=== PATIENT | female | born 1965 | race Two or more races ===

== ENCOUNTER 2021-03-11 08:04 | Inpatient (IN) | payer OTHER ==
[2021-03-10 10:00] LABS: BASOPHILS % (AUTO) 1 % (0-1); EOSINOPHILS % (AUTO) 1 % (1-7); LYMPHOCYTES % (AUTO) 37 % (22-44); MEAN CORPUSCULAR HEMOGLOBIN 30.7 pg (27.0-34.8); MEAN CORPUSCULAR HGB CONC 33.3 g/dL (32.4-35.8); MEAN PLATELET VOLUME 8.3 fL (7.4-10.4); MONOCYTES % (AUTO) 6 % (2-9); NEUTROPHILS % (AUTO) 55 % (42-75); PLATELET COUNT 254 x10^3/uL (130-400); RED CELL DISTRIBUTION WIDTH 13.7 % (9.6-15.2)
[2021-03-10 10:01] LABS: HCT (SEDRATE) 40.6 % (34.6-47.8)
[2021-03-10 10:11] LABS: ANION GAP 5 mmol/L (5-15); CALCIUM 8.9 mg/dL (8.5-10.1); CHLORIDE 109 mmol/L (98-107); CREATININE 0.63 mg/dL (0.55-1.02)
[2021-03-10 10:12] LABS: INTERNATIONAL NORMALIZED RATIO 0.95 (0.93-1.1); PROTHROMBIN TIME 10.2 Seconds (9.6-11.5)
[~2021-03-11] VITALS: Ht 157.5 cm; Wt 82.3 kg
[~2021-03-11 08:04] MED LIST: ALPR0.5T7 PO; COLE500G2 PO; GALC120P INJ; HYDR-3241 PO; MULT-449 PO; PANT40TA3 PO
[2021-03-11] MEDS ORDERED: VANCOMYCIN PMX 1GM/200ML 200 ML IV ONE (11:00)
[2021-03-11 11:25] VITALS: BP 109/75
[2021-03-11] MEDS ORDERED: CHLORHEXIDINE 15 ML UDC PO ONE (11:30)
[2021-03-11] MEDS ORDERED: LACTATED RINGERS 1,000 ML IV SCH (11:30)
[2021-03-11] MEDS ORDERED: MIDAZOLAM 1 MG/ML, 2ML ONE ×2 (11:58→17:13)
[2021-03-11] MEDS ORDERED: FENTANYL PF 250 MCG/5ML ONE (11:58)
[2021-03-11] MEDS ORDERED: PROPOFOL 50 ML ONE ×3 (11:59→15:33)
[2021-03-11] MEDS ORDERED: DIPHENHYDRAMINE 50 MG/ML, 1ML IVPush PRN ×2 (12:00→17:30)
[2021-03-11] MEDS ORDERED: LABETALOL 5MG/ML, 20ML IV PRN ×2 (12:00→17:30)
[2021-03-11] MEDS ORDERED: HALOPERIDOL 5 MG/ML IV PRN (12:00)
[2021-03-11] MEDS ORDERED: ACETAMINOPHEN 325 MG TABLET PO PRN (12:00)
[2021-03-11] MEDS ORDERED: MEPERIDINE/PF 25MG/0.5ML IVPush PRN (12:00)
[2021-03-11] MEDS ORDERED: HYDROmorphone 1 MG/ML, 1ML INJ IVPush PRN (12:00)
[2021-03-11] MEDS ORDERED: MIDAZOLAM 1 MG/ML, 2ML IV PRN (12:00)
[2021-03-11] MEDS ORDERED: OXYcodone 5 MG/5 ML ORAL.SOL UDC PO PRN (12:00)
[2021-03-11] MEDS ORDERED: PROMETHAZINE 25 MG/ML, 1ML IVPush PRN (12:00)
[2021-03-11] MEDS ORDERED: hydrALAzine 20 MG/ML, 1ML IV PRN (12:00)
[2021-03-11] MEDS ORDERED: VANCOMYCIN 1,000 MG in SODIUM CHLORIDE 0.9% 100 ML IV ONE (12:30)
[2021-03-11] MEDS ORDERED: BUPIVACAINE/PF 0.5% ONE (12:40)
[2021-03-11] MEDS ORDERED: THROMBIN 20,000 UNIT VIAL TP ONE (12:41)
[2021-03-11] MEDS ORDERED: TRANEXAMIC ACID 100 MG/ML, 10ML ONE ×2 (12:41→13:17)
[2021-03-11] MEDS ORDERED: VANCOMYCIN 1,000 MG ONE (12:41)
[2021-03-11] MEDS ORDERED: EPINEPHRINE 1 MG/ML, 1ML ONE (12:41)
[2021-03-11] MEDS ORDERED: SCOPOLAMINE 1MG PATCH TD ONE (13:04)
[2021-03-11] MEDS ORDERED: REMIFENTANIL 2 MG ONE (13:06)
[2021-03-11] MEDS ORDERED: HEPARIN 1,000 UNITS/ML, 10ML ONE (14:04)
[2021-03-11] MEDS ORDERED: BUPIVACAINE/PF-EPI 0.5% 1:200K IM ONE (14:20)
[2021-03-11] MEDS ORDERED: HYDROmorphone 1 MG/ML, 1ML INJ ONE (14:38)
[2021-03-11] MEDS ORDERED: NEOSTIGMINE 1 MG/ML, 10ML ONE (17:01)
[2021-03-11] MEDS ORDERED: PROPOFOL 10 MG/ML, 20ML ONE (17:01)
[2021-03-11] MEDS ORDERED: GLYCOPYRROLATE 0.2MG/1ML, 5ML ONE (17:01)
[2021-03-11] MEDS ORDERED: ONDANSETRON 2MG/ML, 2ML ONE (17:01)
[2021-03-11] MEDS ORDERED: SUCCINYLCHOLINE 20 MG/ML, 10ML ONE (17:01)
[2021-03-11] MEDS ORDERED: CEFAZOLIN 1,000 MG ONE (17:01)
[2021-03-11] MEDS ORDERED: DEXAMETHASONE 4 MG/ML, 1ML ONE (17:01)
[2021-03-11] MEDS ORDERED: ROCURONIUM 10MG/ML,5ML ONE (17:01)
[2021-03-11] MEDS ORDERED: FENTANYL PF 100 MCG/2ML ONE ×2 (17:08→18:02)
[2021-03-11] MEDS ORDERED: TRANEXAMIC ACID 1,000 MG in SODIUM CHLORIDE 0.9% 100 ML IVPB ONE (17:30)
[2021-03-11] MEDS ORDERED: KETOROLAC 30 MG/1 ML IVPush ONE (17:30)
[2021-03-11] MEDS ORDERED: DIPHENHYDRAMINE 50 MG CAPSULE PO PRN (17:30)
[2021-03-11] MEDS ORDERED: ACETAMINOPHEN 500 MG TABLET PO PRN (17:30)
[2021-03-11] MEDS ORDERED: SODIUM CHLORIDE 0.9% 1,000 ML IV PRN (17:30)
[2021-03-11] MEDS ORDERED: PROMETHAZINE 25 MG/ML, 1ML IM PRN (17:30)
[2021-03-11] MEDS ORDERED: LABETALOL 5MG/ML, 20ML IVPush PRN (17:30)
[2021-03-11] MEDS ORDERED: LORazepam 1MG TABLET PO PRN (17:30)
[2021-03-11] MEDS ORDERED: HYDROmorphone 2MG TABLET PO PRN (17:30)
[2021-03-11] MEDS ORDERED: OXYcodone IR 5MG TABLET PO PRN (17:30)
[2021-03-11] MEDS ORDERED: DIPHENHYDRAMINE 50 MG/ML, 1ML IM PRN (17:30)
[2021-03-11] MEDS ORDERED: KETOROLAC 30 MG/1 ML IVPush PRN (17:30)
[2021-03-11] MEDS: FENTANYL PF 100 MCG/2ML IV PRN ×2 (18:05→18:25)
[2021-03-11] MEDS ORDERED: ACETAMINOPHEN 650 MG/20.3 ML UDC ONE (18:40)
[2021-03-11] MEDS ORDERED: OXYcodone 5 MG/5 ML ORAL.SOL UDC ONE (18:41)
[2021-03-11 20:29] VITALS: BP 104/70
[2021-03-11] MEDS: ALPRAZOLAM MC SCH (20:30)
[2021-03-11] MEDS ORDERED: ZOLPIDEM 5MG TABLET PO PRN (21:00)
[2021-03-11] MEDS: COLESTIPOL 1 GM TABLET PO SCH (22:55)
[2021-03-11] MEDS: NS + 20MEQ KCL 1,000 ML IV SCH (22:56)
[2021-03-11] MEDS: CEFAZOLIN PMX 1GM/50ML 50 ML IVPB SCH (23:14)
[2021-03-11] MEDS: METHOCARBAMOL 1,000 MG in DEXTROSE 5% 100 ML IV SCH (23:51)
[2021-03-12 00:42] VITALS: BP 96/62
[2021-03-12] MEDS: ALPRAZOLAM MC SCH ×4 (04:30→22:50)
[2021-03-12 04:44] VITALS: BP 99/65
[2021-03-12 06:00] LABS: BASOPHILS % (AUTO) 0 % (0-1); EOSINOPHILS % (AUTO) 0 % (1-7); LYMPHOCYTES % (AUTO) 15 % (22-44); MEAN CORPUSCULAR HGB CONC 33.5 g/dL (32.4-35.8); MEAN PLATELET VOLUME 8.8 fL (7.4-10.4); MONOCYTES % (AUTO) 6 % (2-9); NEUTROPHILS % (AUTO) 80 % (42-75); PLATELET COUNT 201 x10^3/uL (130-400); RED BLOOD COUNT 3.47 x10^6/uL (3.82-5.3); RED CELL DISTRIBUTION WIDTH 13.8 % (9.6-15.2)
[2021-03-12] MEDS: CEFAZOLIN PMX 1GM/50ML 50 ML IVPB SCH (06:31)
[2021-03-12] MEDS: PANTOPRAZOLE 40MG TABLET PO SCH (06:31)
[2021-03-12] MEDS: DIAZEPAM MC SCH ×3 (07:00→22:50)
[2021-03-12] MEDS: LORAZEPAM MC SCH ×3 (07:00→22:50)
[2021-03-12] MEDS: METHOCARBAMOL 1,000 MG in DEXTROSE 5% 100 ML IV SCH ×3 (07:12→22:49)
[2021-03-12 08:28] VITALS: BP 92/57
[2021-03-12] MEDS: COLESTIPOL 1 GM TABLET PO SCH ×2 (08:36→20:05)
[2021-03-12] MEDS: MULTIVITAMIN 1 TABLET PO SCH (08:37)
[2021-03-12] MEDS: NS + 20MEQ KCL 1,000 ML IV SCH ×2 (11:10→22:50)
[2021-03-12 15:00] VITALS: BP 96/60
[2021-03-12 19:50] VITALS: BP 100/60
[2021-03-13 02:00] VITALS: BP 93/58
[2021-03-13 06:04] LABS: BASOPHILS % (AUTO) 0 % (0-1); EOSINOPHILS % (AUTO) 0 % (1-7); LYMPHOCYTES % (AUTO) 13 % (22-44); MEAN CORPUSCULAR HEMOGLOBIN 30.2 pg (27.0-34.8); MEAN CORPUSCULAR HGB CONC 32.6 g/dL (32.4-35.8); MEAN PLATELET VOLUME 8.8 fL (7.4-10.4); MONOCYTES % (AUTO) 6 % (2-9); NEUTROPHILS % (AUTO) 81 % (42-75); PLATELET COUNT 173 x10^3/uL (130-400); RED BLOOD COUNT 3.18 x10^6/uL (3.82-5.3); RED CELL DISTRIBUTION WIDTH 13.9 % (9.6-15.2)
[2021-03-13] MEDS: PANTOPRAZOLE 40MG TABLET PO SCH (06:04)
[2021-03-13] MEDS: COLESTIPOL 1 GM TABLET PO SCH ×2 (06:04→20:10)
[2021-03-13] MEDS: ALPRAZOLAM MC SCH ×3 (06:43→23:00)
[2021-03-13] MEDS: LORAZEPAM MC SCH ×3 (06:43→23:00)
[2021-03-13] MEDS: METHOCARBAMOL 1,000 MG in DEXTROSE 5% 100 ML IV SCH ×2 (06:43→15:42)
[2021-03-13] MEDS: DIAZEPAM MC SCH ×3 (06:43→23:00)
[2021-03-13 08:29] VITALS: BP 91/59
[2021-03-13] MEDS: MULTIVITAMIN 1 TABLET PO SCH (09:00)
[2021-03-13] MEDS: NS + 20MEQ KCL 1,000 ML IV SCH ×2 (09:26→18:08)
[2021-03-13] MEDS: SENNA/DOCUSATE TABLET PO PRN (12:42)
[2021-03-13] MEDS: OXYcodone IR 5MG TABLET PO PRN ×2 (12:49→20:09)
[2021-03-13 14:36] VITALS: BP 101/68
[2021-03-13] MEDS: morphine SULFATE 10 MG/ML, 1ML IVPush PRN ×2 (17:16→23:57)
[2021-03-13 18:21] VITALS: BP 109/63
[2021-03-13] MEDS: DIAZEPAM 5 MG TABLET PO PRN (20:15)
[2021-03-14] MEDS: ONDANSETRON 2MG/ML, 2ML IV PRN ×2 (00:05→09:38)
[2021-03-14] MEDS: morphine SULFATE 10 MG/ML, 1ML IVPush PRN ×2 (00:13→09:40)
[2021-03-14] MEDS: OXYcodone IR 5MG TABLET PO PRN ×2 (01:29→04:43)
[2021-03-14 01:31] VITALS: BP 103/62
[2021-03-14] MEDS: MAGNESIUM HYDROXIDE 8%, 30ML UDC PO PRN (04:43)
[2021-03-14] MEDS: NS + 20MEQ KCL 1,000 ML IV SCH ×2 (04:44→15:27)
[2021-03-14 05:55] LABS: BASOPHILS % (AUTO) 0 % (0-1); EOSINOPHILS % (AUTO) 0 % (1-7); LYMPHOCYTES % (AUTO) 9 % (22-44); MEAN CORPUSCULAR HEMOGLOBIN 30.6 pg (27.0-34.8); MEAN CORPUSCULAR HGB CONC 33.2 g/dL (32.4-35.8); MEAN PLATELET VOLUME 8.8 fL (7.4-10.4); MONOCYTES % (AUTO) 7 % (2-9); NEUTROPHILS % (AUTO) 84 % (42-75); PLATELET COUNT 148 x10^3/uL (130-400); RED BLOOD COUNT 3.12 x10^6/uL (3.82-5.3)
[2021-03-14] MEDS: DIAZEPAM MC SCH ×3 (06:05→20:12)
[2021-03-14] MEDS: ALPRAZOLAM MC SCH ×3 (06:05→20:12)
[2021-03-14] MEDS: LORAZEPAM MC SCH ×3 (06:05→20:12)
[2021-03-14] MEDS: COLESTIPOL 1 GM TABLET PO SCH ×2 (06:22→20:13)
[2021-03-14] MEDS: PANTOPRAZOLE 40MG TABLET PO SCH (06:22)
[2021-03-14 07:27] VITALS: BP 97/61
[2021-03-14] MEDS: MULTIVITAMIN 1 TABLET PO SCH (09:49)
[2021-03-14] MEDS: DIAZEPAM 5 MG TABLET PO PRN (09:49)
[2021-03-14] MEDS: SENNA/DOCUSATE TABLET PO PRN (09:52)
[2021-03-14] MEDS: HYDROcodone/APAP 5/325 TABLET PO PRN ×3 (11:46→20:13)
[2021-03-14 13:45] VITALS: BP 103/68
[2021-03-14] MEDS: DEXAMETHASONE 4 MG/ML, 5ML IVPush PRN (14:22)
[2021-03-14] MEDS ORDERED: SCOPOLAMINE 1MG PATCH TD ONE (15:00)
[2021-03-14] MEDS: POLYETHYLENE GLYCOL 17 GM PACKET PO PRN (16:20)
[2021-03-14] MEDS: BISACODYL 10 MG SUPP PR PRN (20:13)
[2021-03-14 20:20] VITALS: BP 104/65
[2021-03-15] MEDS ORDERED: DEXAMETHASONE 4 MG/ML, 1ML ONE (00:55)
[2021-03-15] MEDS: HYDROcodone/APAP 5/325 TABLET PO PRN ×5 (00:59→14:23)
[2021-03-15] MEDS: DEXAMETHASONE 4 MG/ML, 5ML IVPush PRN ×2 (01:00→09:27)
[2021-03-15 02:09] VITALS: BP 100/66
[2021-03-15] MEDS: PANTOPRAZOLE 40MG TABLET PO SCH (05:43)
[2021-03-15 06:33] LABS: BASOPHILS % (AUTO) 0 % (0-1); EOSINOPHILS % (AUTO) 0 % (1-7); LYMPHOCYTES % (AUTO) 6 % (22-44); MEAN CORPUSCULAR HEMOGLOBIN 30.7 pg (27.0-34.8); MEAN CORPUSCULAR HGB CONC 33.2 g/dL (32.4-35.8); MONOCYTES % (AUTO) 2 % (2-9); NEUTROPHILS % (AUTO) 92 % (42-75); PLATELET COUNT 168 x10^3/uL (130-400); RED BLOOD COUNT 3.35 x10^6/uL (3.82-5.3); RED CELL DISTRIBUTION WIDTH 13.2 % (9.6-15.2)
[2021-03-15] MEDS: ALPRAZOLAM MC SCH (07:00)
[2021-03-15] MEDS: DIAZEPAM MC SCH (07:00)
[2021-03-15] MEDS: LORAZEPAM MC SCH (07:00)
[2021-03-15 07:32] VITALS: BP 99/64
[2021-03-15] MEDS: COLESTIPOL 1 GM TABLET PO SCH (09:00)
[2021-03-15] MEDS: MULTIVITAMIN 1 TABLET PO SCH (09:27)
[2021-03-15] MEDS: DIAZEPAM 5 MG TABLET PO PRN (09:29)
[2021-03-15] MEDS: POLYETHYLENE GLYCOL 17 GM PACKET PO PRN (09:29)
[2021-03-15] MEDS: SENNA/DOCUSATE TABLET PO PRN (09:29)
[2021-03-15] MEDS: MAGNESIUM HYDROXIDE 8%, 30ML UDC PO PRN (09:29)
[2021-03-15] MEDS: NS + 20MEQ KCL 1,000 ML IV SCH (11:55)
[2021-03-15 12:07] VITALS: BP 107/69
[2021-03-15] MEDS: BISACODYL 10 MG SUPP PR PRN (13:17)
[2021-03-15] MEDS ORDERED: HYDR1TAB53 PO (15:33)
[2021-03-15] MEDS ORDERED: DIAZ5TAB4 PO (15:35)
[2021-03-15] MEDS ORDERED: ONDA4TAB7 PO (15:35)
== END 2021-03-15 16:10 | disposition home or self-care (01) | DRG 455 ==
LOC: ORIP 10:36 → 4NE 19:49
PROVIDERS: ADMIT Orthopaedic Surgery Orthopaedic Surgery of the Spine; ATTEND Orthopaedic Surgery Orthopaedic Surgery of the Spine
PROC: 0SG3071 Fusion of Lumbosacral Joint with Autologous Tissue Substitute, Posterior Approach, Posterior Column, Open Approach (ICD-10-PCS; 2021-03-11)
PROC: 01NB0ZZ Release Lumbar Nerve, Open Approach (ICD-10-PCS; 2021-03-11)
PROC: 01NR0ZZ Release Sacral Nerve, Open Approach (ICD-10-PCS; 2021-03-11)
PROC: 07DR0ZZ Extraction of Iliac Bone Marrow, Open Approach (ICD-10-PCS; 2021-03-11)
PROC: 4A11X4G Monitoring of Peripheral Nervous Electrical Activity, Intraoperative, External Approach (ICD-10-PCS; 2021-03-11)
PROC: 0SG30AJ Fusion of Lumbosacral Joint with Interbody Fusion Device, Posterior Approach, Anterior Column, Open Approach (ICD-10-PCS; principal; 2021-03-11 12:30)
DX: M48.07 Spinal stenosis, lumbosacral region (principal); M43.17 Spondylolisthesis, lumbosacral region; I95.1 Orthostatic hypotension; K59.00 Constipation, unspecified; M51.17 Intervertebral disc disorders with radiculopathy, lumbosacral region
CPT/HCPCS: 36415; 72100; S0020; 71046; 80048; 83036; 85025; 85610; 85651; 85730; 93005; 95938; 95941; C1713; G0378; J0171; J0690; J1100; J1170; J1644; J1885; J2250; J2270; J2405; J2704; J2710; J3010; J3370; J3480; C1760; C1762; C1763; C1889; C9362; J0330; J1200; J2800; J7120